=== PATIENT | male | born 1975 | race Two or more races ===

== ENCOUNTER 2018-08-18 07:46 | Emergency (ER) | payer MEDICAID | END 2018-08-18 09:55 | disposition home or self-care (01) | LOC: FTE 07:46 | DX: S62.630A Displaced fracture of distal phalanx of right index finger, initial encounter for closed fracture (principal); W23.0XXA Caught, crushed, jammed, or pinched between moving objects, initial encounter; Y92.810 Car as the place of occurrence of the external cause | CPT/HCPCS: 29130; 73140; 99283-25 ==